=== PATIENT | female | born 1990 | race Caucasian/White ===

== ENCOUNTER 2018-07-22 06:48 | Emergency (ER) | payer SELFPAY ==
[2018-07-22] MEDS ORDERED: TORADOL IM ONE (08:26)
[2018-07-22] MEDS ORDERED: DILAUDID IM ONE ×2 (08:26→10:09)
--- NOTE | 2018-07-22 10:03 | XRay Report ---
FINAL REPORT EXAM: XR SPINE SACRUM/COCCYX 2+V HISTORY: fall ad pain on tailbone TECHNIQUE: Three views of the sacrum and coccyx. PRIORS: None currently available. FINDINGS: SI joints are unremarkable. Presacral soft tissues are unremarkable. There is no acute fracture. There is no evidence for healing fracture. There is no cortical destruction to suggest osteomyelitis. There are no suspicious osseous lesions. There are no radiopaque foreign objects. IMPRESSION: No acute osseous findings.
--- NOTE | 2018-07-22 10:16 | Emergency Department Report ---
ED General Adult HPI - General Chief complaint: Fall Stated complaint: BROKEN BACK Time Seen by Provider: 07/22/18 08:16 Source: patient, RN notes reviewed Mode of arrival: Ambulatory Limitations: No Limitations - History of Present Illness Initial comments: This is a 28-year-old female who is not known to this provider, reports that she is not . Patient reports tripping and bumping down one flight of stairs with her tailbone prior to arrival. Prior to the trip and fall, she is not having any symptoms. She doesn't think that she hit her head. She has no midline neck pain. Her only complaint is sharp burning tailbone pain, which increases with palpation, and decreases when she lays on her side. It does not radiate anywhere. She denies severe headache, midline neck pain, chest pain, abdominal pain, midline back pain, extremity weakness, numbness. She denies alcohol consumption. -: Sudden Location: back Radiation: non-radiation Severity scale (0 -10): 10 Quality: stabbing, aching, sharp Consistency: constant Improves with: medication, rest Worsens with: movement Associated Symptoms: denies other symptoms. denies: confusion, chest pain, cough, diaphoresis, fever/chills, headaches, loss of appetite, malaise, nausea/ vomiting, rash, seizure, shortness of breath, syncope, weakness - Related Data Previous Rx's Medication Instructions Recorded Last Taken Type Acetaminophen [Tylenol Arthritis] 650 mg PO Q6HR PRN #30 tablet.er 07/22/18 Unknown Rx Ibuprofen [Motrin] 600 mg PO Q8H PRN #30 tablet 07/22/18 Unknown Rx Allergies Allergy/AdvReac Type Severity Reaction Status Date / Time No Known Allergies Allergy Unverified 10/01/14 19:40 ED Review of Systems ROS: Stated complaint: BROKEN BACK Other details as noted in HPI Constitutional: denies: malaise, weakness Eyes: denies: eye discharge ENT: denies: epistaxis Respiratory: denies: cough Cardiovascular: denies: chest pain Gastrointestinal: denies: abdominal pain Genitourinary: denies: dysuria Musculoskeletal: arthralgia, myalgia Neurological: denies: headache, weakness, numbness, paresthesias, confusion Psychiatric: anxiety ED Past Medical Hx - Past Medical History Previous Medical History?: Yes Hx Psychiatric Treatment: Yes (anxiety) Additional medical history: Vaginal delivery 2010 - Surgical History Past Surgical History?: Yes Hx Cholecystectomy: Yes - Social History Smoking Status: Never Smoker Substance Use Type: None - Medications Home Medications: Home Medications Medication Instructions Recorded Confirmed Last Taken Type Acetaminophen [Tylenol Arthritis] 650 mg PO Q6HR PRN #30 tablet.er 07/22/18 Unknown Rx Ibuprofen [Motrin] 600 mg PO Q8H PRN #30 tablet 07/22/18 Unknown Rx ED Physical Exam - General Limitations: No Limitations General appearance: alert, anxious, in distress - Head Head exam: Present: atraumatic, normocephalic - Eye Eye exam: Present: normal appearance, EOMI. Absent: nystagmus - ENT ENT exam: Present: normal exam, normal orophraynx, mucous membranes moist, normal external ear exam - Neck Neck exam: Present: normal inspection, full ROM. Absent: tenderness, meningismus - Respiratory Respiratory exam: Present: normal lung sounds bilaterally. Absent: respiratory distress - Cardiovascular Cardiovascular Exam: Present: normal rhythm, tachycardia, normal heart sounds. Absent: systolic murmur, diastolic murmur, rubs, gallop - GI/Abdominal GI/Abdominal exam: Present: soft, normal bowel sounds. Absent: distended, tenderness, guarding, rebound, rigid, pulsatile mass - Rectal Rectal exam: Present: normal inspection (chaperoned by nurse Carola Miranda), other (there is reproducible tailbone/coccygeal pain.) - Extremities Exam Extremities exam: Present: normal inspection, full ROM, normal capillary refill , other (2+ pulses noted in the bilateral upper, lower extremities. Compartments soft. No long bony tenderness. The pelvis is stable.). Absent: tenderness, pedal edema, joint swelling, calf tenderness - Back Exam Back exam: Present: normal inspection, full ROM. Absent: tenderness, CVA tenderness (R), CVA tenderness (L), muscle spasm, paraspinal tenderness, vertebral tenderness - Neurological Exam Neurological exam: Present: alert, oriented X3, CN II-XII intact, normal gait ( patient walks with a slight limp, but is otherwise able to weight-bear), other ( Extraocular movements intact. Tongue midline. No facial droop. Facial sensation intact to light touch in the V1, V2, V3 distribution bilaterally. 5 and 5 strength in 4 extremities.. Sensation is intact to light touch in 4 extremities.). Absent: motor sensory deficit - Psychiatric Psychiatric exam: Present: anxious - Skin Skin exam: Present: warm, dry, intact, normal color. Absent: rash ED Course Vital Signs 07/22/18 07/22/18 07/22/18 07:14 10:18 10:20 Temperature 98.2 F 98.5 F Pulse Rate 115 H 55 L Respiratory 16 18 17 Rate Blood Pressure 122/87 Blood Pressure 129/112 [Left] O2 Sat by Pulse 99 96 96 Oximetry - Reevaluation(s) Reevaluation #1: 07/22/18 11:09 Tachycardia resolved. Reports pain is improved. Reports readiness for discharge. Noted to be playing on the cellular phone. ED Medical Decision Making - Lab Data Vital Signs 07/22/18 07:14 Temperature 98.2 F Pulse Rate 115 H Respiratory 16 Rate Blood Pressure 122/87 O2 Sat by Pulse 99 Oximetry Laboratory Last Values Total Creatine Kinase 47 units/L (30-135) 07/22/18 07:46 HCG, Quant < 2 mIU/mL (0-4) 07/22/18 07:46 - Radiology Data Radiology results: report reviewed, image reviewed X-ray of the sacrum, coccyx demonstrates no fracture or dislocation - Medical Decision Making Differential diagnosis, including but not limited to: Fractured coccyx, coccydynia, mechanical pain Assessment and plan: 28-year-old female who fell down a flight of stairs on her tailbone. She is afebrile with reassuring vital signs with the exception of tachycardia, likely secondary to pain, anxiety. She is not and on her primary and secondary survey, no obvious significant wounds noted.Patient is clinically sober at this time. The cervical spine is cleared through nexus and uzbek c spine rule X-ray of the coccyx/sacrum negative, although subacute fracture still a possibility. Extensive discussion had with the patient. Explained that even if she does indeed have a tailbone fracture, management would be expected, and would take 4-6 weeks for complete healing. Through shared decision making, patient and I decide not to obtain bony CT scan of the pelvis as it will not climate change analyst, and the patient has concerns about ionizing radiation. The pain will be treated supportively and symptomatically. Critical care attestation.: If time is entered above; I have spent that time in minutes in the direct care of this critically ill patient, excluding procedure time. ED Disposition Clinical Impression: Coccydynia Disposition: DC-01 TO HOME OR SELFCARE Is pt being admited?: No Does the pt Need Aspirin: No Condition: Good Instructions: Coccyx Injury (ED) Additional Instructions: Rest, and avoid heavy lifting. Avoid strenuous physical activity. Purchase a donut/button pillow over the counter. Use it as often as as needed. Take pain medications as directed. Patient most likely has a bruised or fractured tailbone which was not visualized on x-ray. Pain may last for 4-6 weeks, patient should rest and avoid heavy lifting and avoid strenuous physical activities. Take pain medication as needed/directed, return to the ER right away with new pain, worsened pain, migration of pain, projectile vomiting, change in mental status, confusion, inability to tolerate liquid feeds. Follow-up with the primary care doctor, orthopedist or a pain specialist in 3-4 weeks if pain does not improve on its own. Prescriptions: Acetaminophen [Tylenol Arthritis] 650 mg PO Q6HR PRN #30 tablet.er PRN Reason: Pain Ibuprofen [Motrin] 600 mg PO Q8H PRN #30 tablet PRN Reason: Pain Referrals: [facility] [Provider Group] - 3-5 Days
[2018-07-22 10:19] VITALS: BP 129/112
== END 2018-07-22 11:45 | disposition home or self-care (01) ==
LOC: ED 06:48
DX: M53.3 Sacrococcygeal disorders, not elsewhere classified (principal); F41.9 Anxiety disorder, unspecified; Z90.49 Acquired absence of other specified parts of digestive tract
CPT/HCPCS: 36415; 72220; 82550; 84702; 96372; 99283; J1170; J1885

== ENCOUNTER 2019-05-23 11:07 | Emergency (ER) | payer OTHER ==
--- NOTE | 2019-05-23 11:20 | Emergency Department Report ---
Blank Doc - Documentation Documentation: This is a 29-year-old female that presents with pelvic pain and vaginal bleedi ng. Stated has some dizziness. This initial assessment/diagnostic orders/clinical plan/treatment(s) is/are subject to change based on patient's health status, clinical progression and re- assessment by fellow clinical providers in the ED. Further treatment and workup at subsequent clinical providers discretion. Patient/guardians urged not to elope from the ED as their condition may be serious if not clinically assessed and managed. Initial orders include: 1- Patient sent to [facility] for further evaluation and treatment 2- UA 3- labs
[2019-05-23 13:04] LABS: Bilirubin,Urine NEG (Negative); Blood,Urine LG (Negative); Color,Urine Red (Yellow); Mucus,Urine 3+ /HPF; Urobilinogen,Urine < 2.0 mg/dL (<2.0)
[2019-05-23 13:05] LABS: RBC,Urine > 182.0 /HPF (0.0-6.0)
[2019-05-23 13:34] LABS: Basophils % (Auto) 0.8 % (0.0-1.8); Eosinophils # (Auto) 0.1 K/mm3 (0.0-0.4); Hemoglobin 12.4 gm/dl (10.1-14.3); Lymphocytes % (Auto) 19.5 % (13.4-35.0); Mean Corpuscular HGB Conc 34 % (30-34); Mean Corpuscular Volume 81 fl (79-97); Monocytes # (Auto) 0.4 K/mm3 (0.0-0.8); Monocytes % (Auto) 7.9 % (0.0-7.3); Platelet Count 300 K/mm3 (140-440); Red Blood Count 4.57 M/mm3 (3.65-5.03); Red Cell Distribution Width 15.8 % (13.2-15.2)
[2019-05-23] MEDS ORDERED: TYLENOL PO ONE (14:03)
[2019-05-23] MEDS ORDERED: ROCEPHIN/NS 1 GM/50 ML 1 GM/50 ML BAG IV ONE (14:04)
[2019-05-23] MEDS ORDERED: NACL 0.9% 1000 ML 1,000 ML IV ONE (14:04)
--- NOTE | 2019-05-23 14:09 | Emergency Department Report ---
ED Dysuria HPI - HPI Chief Complaint: Abdominal Pain Stated Complaint: DUB/ DYSURIA Time Seen by Provider: 05/23/19 11:20 Duration: 4 Days Location of Discomfort: Suprapubic Severity: Mild Symptoms: Dysuria: Yes, Frequency: No, Suprapubic Pain: Yes, Flank Pain: Yes, Fever: No, Hematuria: Yes, Abdominal Pain: No, Previous UTI's: Yes Other History: PT IS A 29 YO FEMALE WHO COMES TO ER WITH SUPRAPUBIC PAIN AND L BACK PAIN. NO FEVER OR CHILLS. JUST FINISHED HER PERIOD WHEN SHE HAD DUB AND DYSURIA. ONE SEXUAL PARTNER. PT DOUCHING OFTEN LATELY. NO ABD PAIN. ED Review of Systems ROS: Stated complaint: DIZZINESS,SWEATING/BLEEDING Other details as noted in HPI Comment: All other systems reviewed and negative ED Past Medical Hx - Past Medical History Previous Medical History?: Yes Hx Psychiatric Treatment: Yes (anxiety) Additional medical history: Vaginal delivery 2010 - Surgical History Past Surgical History?: Yes Hx Cholecystectomy: Yes - Family History Family history: no significant - Social History Smoking Status: Never Smoker Substance Use Type: None - Medications Home Medications: Home Medications Medication Instructions Recorded Confirmed Last Taken Type Fluconazole [Diflucan TAB] 150 mg PO ONCE #1 tablet 05/23/19 Unknown Rx Ibuprofen [Motrin] 800 mg PO Q8HR PRN #30 tablet 05/23/19 Unknown Rx Sulfamethoxazole/Trimethoprim 1 each PO BID #6 tablet 05/23/19 Unknown Rx [Bactrim DS TAB] metroNIDAZOLE [Flagyl] 500 mg PO Q12HR #20 tab 05/23/19 Unknown Rx Dysuria Exam - Exam General: Vital signs noted. No distress. Alert and acting appropriately. Exam: Yes Moist Mucous Membranes, Yes CVA Tenderness (L), Yes Abdominal Tenderness, No Rigidity or Guarding Labs: Lab Results 05/23/19 05/23/19 Range/Units 12:41 13:03 WBC 5.0 (4.5-11.0) K/mm3 RBC 4.57 (3.65-5.03) M/mm3 Hgb 12.4 (10.1-14.3) gm/dl Hct 37.0 (30.3-42.9) % MCV 81 (79-97) fl MCH 27 L (28-32) pg MCHC 34 (30-34) % RDW 15.8 H (13.2-15.2) % Plt Count 300 (140-440) K/mm3 Lymph % (Auto) 19.5 (13.4-35.0) % Coke % (Auto) 7.9 H (0.0-7.3) % Eos % (Auto) 3.0 (0.0-4.3) % Baso % (Auto) 0.8 (0.0-1.8) % Lymph # 1.0 L (1.2-5.4) K/mm3 Coke # 0.4 (0.0-0.8) K/mm3 Eos # 0.1 (0.0-0.4) K/mm3 Baso # 0.0 (0.0-0.1) K/mm3 Seg Neutrophils % 68.8 (40.0-70.0) % Seg Neutrophils # 3.4 (1.8-7.7) K/mm3 Urine Color Red (Yellow) Urine Turbidity Cloudy (Clear) Urine pH 6.0 (5.0-7.0) Ur Specific [place] 1.031 H (1.003-1.030) Urine Protein 100 mg/dl (Negative) mg/dL Urine Glucose (UA) Neg (Negative) mg/dL Urine Ketones Neg (Negative) mg/dL Urine Blood Lg (Negative) Urine Nitrite Neg (Negative) Urine Bilirubin Neg (Negative) Urine Urobilinogen < 2.0 (<2.0) mg/dL Ur Leukocyte Esterase Tr (Negative) Urine WBC (Auto) 85.0 H (0.0-6.0) /HPF Urine RBC (Auto) > 182.0 (0.0-6.0) /HPF U Epithel Cells (Auto) 10.0 (0-13.0) /HPF Urine Mucus 3+ /HPF ED Course Vital Signs 05/23/19 11:22 Temperature 98.1 F Pulse Rate 80 Respiratory 16 Rate Blood Pressure 131/87 O2 Sat by Pulse 100 Oximetry ED Medical Decision Making - Lab Data Result diagrams: 05/23/19 13:03 05/23/19 14:59 - Medical Decision Making Labs 05/23/19 05/23/19 05/23/19 12:41 13:03 13:03 WBC 5.0 RBC 4.57 Hgb 12.4 Hct 37.0 MCV 81 MCH 27 L MCHC 34 RDW 15.8 H Plt Count 300 Lymph % (Auto) 19.5 Coke % (Auto) 7.9 H Eos % (Auto) 3.0 Baso % (Auto) 0.8 Lymph # 1.0 L Coke # 0.4 Eos # 0.1 Baso # 0.0 Seg Neutrophils % 68.8 Seg Neutrophils # 3.4 HCG, Qual Negative Urine Color Red Urine Turbidity Cloudy Urine pH 6.0 Ur Specific [place] 1.031 H Urine Protein 100 mg/dl Urine Glucose (UA) Neg Urine Ketones Neg Urine Blood Lg Urine Nitrite Neg Urine Bilirubin Neg Urine Urobilinogen < 2.0 Ur Leukocyte Esterase Tr Urine WBC (Auto) 85.0 H Urine RBC (Auto) > 182.0 U Epithel Cells (Auto) 10.0 Urine Mucus 3+ Vital Signs 05/23/19 11:22 Temperature 98.1 F Pulse Rate 80 Respiratory 16 Rate Blood Pressure 131/87 O2 Sat by Pulse 100 Oximetry UA NOTED PREG NEG 1 SEXUAL PARTNER/PROTECTED NO CONCERN FOR STI JUST ENDED HER PERIOD AND NOW HAVING SOME VAG BLEEDING PT STATES THAT SHE GETS YEAST AND BV INFECTION WHEN SHE IS ON ANTIBIOTICS. NS/ROCEPHIN/DIFLUCAN WILL DC HOME WITH DC PLAN OF CARE AND OB OR PCP FOLLOW UP. PT VERBALIZES UNDERSTANDING OF PLAN OF CARE. - Differential Diagnosis RO /UTI Critical care attestation.: If time is entered above; I have spent that time in minutes in the direct care of this critically ill patient, excluding procedure time. ED Disposition Clinical Impression: UTI (urinary tract infection), Pyelonephritis Disposition: DC-01 TO HOME OR SELFCARE Is pt being admited?: No Does the pt Need Aspirin: No Condition: Stable Instructions: Urinary Tract Infection in Women (ED) Additional Instructions: HYDRATE WELL WITH WATER URINATE AFTER SEX SAFE SEX MEDS ORDERED TODAY EAT YOGURT WITH ACTIVE CULTURES EVERY DAY STOP DOUCHING WEAR COTTON UNDERCLOTHING FOLLOW UP WITH OBGYN OR PCP WHEN YOU FINISH THESE MEDS TO BE SURE THE INFECTION IS GONE REFERRALS BELOW Prescriptions: Sulfamethoxazole/Trimethoprim [Bactrim DS TAB] 1 each PO BID #6 tablet Fluconazole [Diflucan TAB] 150 mg PO ONCE #1 tablet metroNIDAZOLE [Flagyl] 500 mg PO Q12HR #20 tab Ibuprofen [Motrin] 800 mg PO Q8HR PRN #30 tablet PRN Reason: Pain, Moderate (4-6) Referrals: HOLA HURLEY MD [Staff Physician] - 3-5 Days DASHAWN SHULTZ MD [Staff Physician] - 3-5 Days Time of Disposition: 14:56
[2019-05-23] MEDS ORDERED: TORADOL IV ONE (14:56)
[2019-05-23 15:27] LABS: BUN/Creatinine Ratio 21; Blood Urea Nitrogen 15 mg/dL (7-17); Calcium 8.8 mg/dL (8.4-10.2); Hemolysis Index 13
[2019-05-23] MEDS ORDERED: DIFLUCAN PO ONE (15:30)
[2019-05-23 15:48] VITALS: BP 123/82
== END 2019-05-23 15:49 | disposition home or self-care (01) ==
LOC: ED 11:07
DX: N12 Tubulo-interstitial nephritis, not specified as acute or chronic (principal); F41.9 Anxiety disorder, unspecified; Z90.49 Acquired absence of other specified parts of digestive tract; Z79.899 Other long term (current) drug therapy
CPT/HCPCS: 36415; 80048; 81001; 84703; 85025; 87086; 96365; 96375; 99283; J0696; J1885; J7030